=== PATIENT | male | born 1955 | race Caucasian/White ===

== ENCOUNTER → 2020-12-03 | Outpatient (CLI) | payer OTHER ==
[~2020-12-03] MED LIST: BACTRIM DS TAB1 EACH PO; NEOSPORIN OINT15 GM TOP
== END ==
LOC: RT 11:36
DX: I48.91 Unspecified atrial fibrillation (principal); I10 Essential (primary) hypertension
CPT/HCPCS: 93005

== ENCOUNTER 2020-12-18 12:42 | Emergency (ER) | payer OTHER ==
[2020-12-18] MEDS ORDERED: OMEPRAZOLE40 MG PO (13:46)
== END 2020-12-18 13:50 | disposition home or self-care (01) ==
LOC: ER1 12:42
DX: K22.2 Esophageal obstruction (principal); I10 Essential (primary) hypertension
CPT/HCPCS: 99283

== ENCOUNTER → 2021-01-11 | Outpatient (CLI) | payer OTHER ==
[~2021-01-11] MED LIST changes: +OMEPRAZOLE40 MG PO
== END ==
LOC: RAD 09:00
DX: R13.10 Dysphagia, unspecified (principal); K44.9 Diaphragmatic hernia without obstruction or gangrene; K22.2 Esophageal obstruction
CPT/HCPCS: 74221

== ENCOUNTER 2021-01-22 20:33 | Emergency (ER) | payer OTHER | END 2021-01-22 22:42 | disposition home or self-care (01) | LOC: ER1 20:33 | DX: R13.10 Dysphagia, unspecified (principal); I11.9 Hypertensive heart disease without heart failure; E78.5 Hyperlipidemia, unspecified; F17.210 Nicotine dependence, cigarettes, uncomplicated; I48.91 Unspecified atrial fibrillation; Z79.01 Long term (current) use of anticoagulants | CPT/HCPCS: 99283 ==

== ENCOUNTER → 2021-01-30 | Day surgery (SDC) | payer OTHER ==
[~2021-01-30] MED LIST changes: +AMITRIPTYLINE150 MG PO; +ATIVAN2 MG PO; +ELIQUIS5 M1 PO; +MUCINEX600 MG PO; +MULTAQ 400 MG400 MG PO; +NITROSTAT 0.40.4 MG SL; +PREVACID 30 MG30 MG GT; +TENORMIN50 MG PO; +VITAMIN D350 MC3 PO; +ZESTRIL/PRINIVI10 MG GT; +ZOCOR10 MG PO
== END | disposition home or self-care (01) ==
LOC: OR 05:54
DX: K22.9 Disease of esophagus, unspecified (principal); R13.10 Dysphagia, unspecified; K22.2 Esophageal obstruction; I10 Essential (primary) hypertension; E78.5 Hyperlipidemia, unspecified; I48.0 Paroxysmal atrial fibrillation; G56.00 Carpal tunnel syndrome, unspecified upper limb; K21.9 Gastro-esophageal reflux disease without esophagitis; G62.9 Polyneuropathy, unspecified; C61 Malignant neoplasm of prostate; G47.00 Insomnia, unspecified; G25.81 Restless legs syndrome; E55.9 Vitamin D deficiency, unspecified; J30.9 Allergic rhinitis, unspecified; F17.210 Nicotine dependence, cigarettes, uncomplicated; Z79.01 Long term (current) use of anticoagulants; Z79.899 Other long term (current) drug therapy; Z20.822 Contact with and (suspected) exposure to COVID-19
CPT/HCPCS: J2704; J3010; J7120

== ENCOUNTER → 2021-02-04 | Outpatient (CLI) | payer OTHER | LOC: CT 13:33 | DX: K22.89 Other specified disease of esophagus (principal) | CPT/HCPCS: 36415; 71260; 82565; 84520; Q9967 ==